=== PATIENT | male | born 1990 | race Caucasian/White ===

== ENCOUNTER 2016-12-24 14:33 | Emergency (ER) | payer BC ==
[~2016-12-24 14:33] MED LIST: ACETAMINOPHEN650 M4 PO; HUMALOG100 U/M1; HUMALOG100 U/ML SUBQ; K-DUR20 ME1 PO; LANTUS100 U/ML; LANTUS100 U/ML SUBQ; NOVOLIN N100 U/ML INJ; NOVOLOG100 U/ML SUBQ
[2016-12-24 14:59] LABS: URINE SOURCE CLEAN CATCH
[2016-12-24 15:05] LABS: URINE APPEARANCE CLEAR; URINE BILIRUBIN NEG (NEG); URINE BLOOD NEG (NEG); URINE COLOR YELLOW; URINE GLUCOSE >1000 MG/DL (NEG); URINE KETONE 3+ (NEG); URINE LEUKOCYTE ESTERASE NEG (NEG); URINE NITRATE NEG (NEG); URINE PROTEIN NEG (NEG); URINE SPECIFIC GRAVITY 1.045 (1.003-1.035); URINE UROBILINOGEN 0.2 MG/DL (NEG)
[2016-12-24 15:10] LABS: CULTURE INDICATED? NO
[2016-12-24 15:30] LABS: BASOPHIL% 0.3 % (0-2.5); EOSINOPHIL% 0.3 % (0.0-7.0); HEMATOCRIT 51.7 % (38.0-50.0); HEMOGLOBIN 17.4 gm/dL (13.0-16.0); LYMPHOCYTE# 1.3 X10e3 (1.0-3.5); LYMPHOCYTE% 12.6 % (17.0-45.0); MEAN CORPUSCULAR HEMOGLOBIN 30.2 PG (28-34); MEAN CORPUSCULAR HGB CONC 33.6 g/dL (30-36); MEAN PLATELET VOLUME 9.4 FL (6.5-11.5); MONOCYTE# 0.4 X10e3 (0-1.0); NEUTROPHIL# 8.6 X10e3 (1.5-7.1); NEUTROPHIL% 82.8 % (40-75); PLATELET COUNT 297 X10e3 (140-420); RED BLOOD COUNT 5.74 X10e (3.90-5.60); RED CELL DISTRIBUTION WIDTH 12.7 % (11.0-15.5); WHITE BLOOD COUNT 10.3 X10e3 (4.0-10.5)
[2016-12-24 15:32] LABS: DIFF IND NO
[2016-12-24 15:49] LABS: CALCIUM SERUM 9.2 mg/dL (8.4-10.2); CREATININE SERUM 0.7 mg/dL (0.6-1.4); GLOM FILT RATE Estimated 132.1 mL/min (>60); POTASSIUM 4.1 mmol/L (3.5-5.1)
== END 2016-12-24 17:20 | disposition home or self-care (01) ==
LOC: CED 14:33
PROVIDERS: Emergency Medicine
DX: E10.65 Type 1 diabetes mellitus with hyperglycemia (principal); E10.10 Type 1 diabetes mellitus with ketoacidosis without coma; F17.200 Nicotine dependence, unspecified, uncomplicated
CPT/HCPCS: 36415; 80048; 81003; 82010; 82947; 85025; 96361; 96374; 99284; J2405

== ENCOUNTER 2016-12-25 21:44 | Emergency (ER) | payer BC ==
--- NOTE | ~2016-12-25 | CT2 ---
[facility] A Service of [facility] & [facility] RADIOLOGY TEXT RESULTS PATIENT: THERESE OLIVIER LOCATION: [facility] : [birth year] UNIT #: [id number] AGE: [address]: Moe Caraballo DO SEX: M ORDER DR: [id number] [facility] [address] [place], [place] [address] [id number] E MR#: [id number] Acc #: [id number] NAME: THERESE OLIVIER. : 1990 SEX: M STUDY DATE/TIME: 12/26/2016 01:39 UNIT: [facility] ROOM: STUDY DESCRIPTION: CT Abd and Pelv W Cont Attending Physician: Moe Caraballo D.O. Ordering Physician: Tao Spring M.D. Primary Care Physician: Juana Downs A.P.R.N. MEDICAL IMAGING REPORT This report is preliminary unless electronic signature is present EXAM CT abdomen and pelvis 12/26/2016 01:39 INDICATION Nausea, vomiting and diarrhea with hot flashes that started yesterday. Abdominal pain which rates 5/10. TECHNIQUE Axial images were obtained through the abdomen and pelvis following IV contrast administration. Multiplanar reformats were obtained. Comparison made with 07/18/2015. This CT examination was performed with one or more of the following radiation dose reduction techniques: automatic exposure control, adjustment of mA and/or kV according to patient size, and iterative reconstruction. FINDINGS ABDOMEN: Lung bases are clear. Gallbladder unremarkable. No biliary obstruction. Solid abdominal organs are normal. The unopacified GI tract is normal. No free fluid is seen. No definite adenopathy. PELVIS: Urinary bladder is normal. The appendix is normal. The remainder of the unopacified GI tract is grossly normal as well. IMPRESSION 1. Negative CT of the abdomen and pelvis. 2. Grossly normal unopacified GI tract, including the appendix. 3. Normal nonobstructed kidneys. Dictated by... Gallo Bal Jr., M.D. THIS IS AN ELECTRONICALLY VERIFIED REPORT [facility] A Service of [facility] & [facility] RADIOLOGY TEXT RESULTS PATIENT: THERESE OLIVIER LOCATION: [facility] : [birth year] UNIT #: [id number] AGE: [address]: Moe Caraballo DO SEX: M ORDER DR: Gallo Bal Jr., M.D. at 12/26/2016 9:13 PM VIKTOR/ciarra TD: 12/26/2016 10:18 JOB #: [id number] MEDICAL IMAGING REPORT Page 1 of 1 COPY
[2016-12-25 23:28] LABS: BASOPHIL% 0.5 % (0-2.5); EOSINOPHIL# 0.1 X10e3 (0-0.7); EOSINOPHIL% 0.9 % (0.0-7.0); HEMATOCRIT 43.4 % (38.0-50.0); HEMOGLOBIN 14.7 gm/dL (13.0-16.0); LYMPHOCYTE# 2.8 X10e3 (1.0-3.5); LYMPHOCYTE% 38.5 % (17.0-45.0); MEAN CELL VOLUME 88.3 FL (83-96); MEAN CORPUSCULAR HEMOGLOBIN 29.9 PG (28-34); MEAN CORPUSCULAR HGB CONC 33.9 g/dL (30-36); MEAN PLATELET VOLUME 8.8 FL (6.5-11.5); MONOCYTE# 0.5 X10e3 (0-1.0); MONOCYTE% 6.3 % (3.0-12.0); NEUTROPHIL# 3.9 X10e3 (1.5-7.1); NEUTROPHIL% 53.8 % (40-75); PLATELET COUNT 258 X10e3 (140-420); RED BLOOD COUNT 4.92 X10e (3.90-5.60); RED CELL DISTRIBUTION WIDTH 12.7 % (11.0-15.5); WHITE BLOOD COUNT 7.2 X10e3 (4.0-10.5)
[2016-12-25 23:29] LABS: DIFF IND NO
[2016-12-25 23:35] LABS: ARTERIAL BLOOD GAS PCO2 42.9 mmHg (35.0-45.0); ARTERIAL BLOOD GAS pH 7.449 (7.350-7.450)
[2016-12-25 23:36] LABS: ARTERIAL BLD GAS O2 SATURATION 98.4 % (90.0-100.0); ARTERIAL BLOOD GAS ALLEN TEST NORMAL; ARTERIAL BLOOD GAS ART SITE LEFT RADIAL; ARTERIAL BLOOD GAS CARBOXY HB 1.3 %sat (0.0-9.0); ARTERIAL BLOOD GAS HCO3 29.7 mmol/L; ARTERIAL BLOOD GAS MET HB 0.7 %sat (0.0-2.0); ARTERIAL BLOOD GAS PO2 94.8 mmHg (80.0-100); ARTERIAL DRAW? YES
[2016-12-25 23:57] LABS: ALBUMIN SERUM 3.9 g/dL (3.5-5.0); BETA HYDROXYBUTYRATE 0.31 MMOL/L (0.02-0.27); BILIRUBIN, DIRECT 0.3 mg/dL (0.0-0.2); BILIRUBIN,INDIRECT 2.2 mg/dL (0.0-0.9); BILIRUBIN,TOTAL 2.5 mg/dL (0.2-2.0); BUN/CREATININE RATIO 26.66; CALCIUM SERUM 8.9 mg/dL (8.4-10.2); CREATININE SERUM 0.6 mg/dL (0.6-1.4); GLOM FILT RATE Estimated 140.8 mL/min (>60); POTASSIUM 3.8 mmol/L (3.5-5.1); PROTEIN TOTAL SERUM 6.3 g/dL (6.0-8.3)
[2016-12-26 01:40] LABS: URINE SOURCE CLEAN CATCH
[2016-12-26 01:45] LABS: URINE APPEARANCE CLOUDY; URINE BILIRUBIN NEG (NEG); URINE BLOOD NEG (NEG); URINE COLOR YELLOW; URINE GLUCOSE >1000 MG/DL (NEG); URINE KETONE 2+ (NEG); URINE LEUKOCYTE ESTERASE NEG (NEG); URINE NITRATE NEG (NEG); URINE PROTEIN NEG (NEG); URINE SPECIFIC GRAVITY 1.023 (1.003-1.035)
[2016-12-26 01:50] LABS: CULTURE INDICATED? NO
[2016-12-26 01:54] LABS: AMPHETAMINE NEG (NEG); BARBITURATES NEG (NEG); BENZODIAZEPINES NEG (NEG); COCAINE NEG (NEG); MARIJUANA POS (NEG); OPIATES NEG (NEG); TRICYCLIC ANTIDEPRESSANTS NEG (NEG); U METHADONE NEG (NEG)
== END 2016-12-26 04:05 | disposition home or self-care (01) ==
LOC: CED 21:44
PROVIDERS: Emergency Medicine
DX: K59.00 Constipation, unspecified (principal); E11.65 Type 2 diabetes mellitus with hyperglycemia; F17.210 Nicotine dependence, cigarettes, uncomplicated
CPT/HCPCS: 36415; 36600; 74177; 80048; 80076; 80307; 81003; 82010; 82150; 82803; 82947; 83690; 84484; 85025; 96361; 96374; 99284; J2405; Q9967

== ENCOUNTER 2016-12-26 13:52 | Emergency (ER) | payer BC | END 2016-12-26 19:50 | disposition home or self-care (01) | LOC: CED 13:52 | DX: K59.00 Constipation, unspecified (principal); E11.9 Type 2 diabetes mellitus without complications; F17.200 Nicotine dependence, unspecified, uncomplicated | CPT/HCPCS: 82947; 96372; 99283; J2765 ==